=== PATIENT | female | born 1955 | race American Indian/Alaskan Native ===

== ENCOUNTER 2016-09-27 07:20 | Emergency (ER) | payer OTHER ==
[2016-09-27 07:38] VITALS: BP 131/83
--- NOTE | 2016-09-27 09:05 | XRay Report ---
RIGHT KNEE, 3 views: History: Right knee pain and injury. Normal bone mineralization. A small joint effusion is identified. There are mild degenerative changes in the retropatellar space. The medial and lateral compartments are within normal limits. No bone lesion or displaced fracture. IMPRESSION: Chondromalacia patella. Small joint effusion. No acute injury is detected.
[2016-09-27] MEDS ORDERED: FLEXERIL PO ONE (09:41)
[2016-09-27] MEDS ORDERED: MOTRIN PO ONE (09:42)
--- NOTE | 2016-09-27 16:51 | Emergency Department Report ---
Entered by KENTRELL ANDREA, acting as scribe for GALE DO PA. ED Lower Extremity HPI - General Chief Complaint: Extremity Injury, Lower Stated Complaint: RT KNEE PAIN Time Seen by Provider: 09/27/16 09:23 Source: patient Mode of arrival: Ambulatory Limitations: No Limitations - History of Present Illness Initial Comments: 60 y/o female with no significant PMHx presents to the ED c/o posterior right knee pain that began 1 day ago. Rates pain a 10/10 in severity, which she describes as sharp and aching in quality. Aggravated with weight bearing and movement, and alleviated with immobilization. Reports associated right knee swelling, but she denies any right knee injury/trauma, numbness, tingling, chest pain, SOB, back pain, and headache. Patient reports she works out regularly and her right knee swells up after her workouts. Took aspirin yesterday and applied an ice pack with an china wrap with no relief. NKDA. SMITH Complaint: other (right knee pain and swelling) Onset/Timin -: days(s) Injury: Ankle: Right (posterior) Type of Injury: unknown Place: home Severity: severe Severity scale (0 -10): 10 Improves With: nothing Worsens With: weight bearing, movement Associated Symptoms: swelling (posterior right knee), able to partially bear weight, ambulatory. denies: snap/pop sensation, numbness, tingling Treatments Prior to Arrival: cold therapy, bandage, NSAIDS - Related Data Previous Rx's Medication Instructions Recorded Last Taken Type HYDROcodone/APAP 5-325 [[place] 1 each PO Q6HR PRN #12 tablet 06/29/14 Unknown Rx 5/325] Cyclobenzaprine [Flexeril] 10 mg PO TID PRN #24 tablet 09/27/16 Unknown Rx Ibuprofen [Motrin 600 MG tab] 600 mg PO Q8H PRN #30 tablet 09/27/16 Unknown Rx Allergies Allergy/AdvReac Type Severity Reaction Status Date / Time No Known Allergies Allergy Unverified 06/29/14 05:58 ED Review of Systems ROS: Stated complaint: RT KNEE PAIN Other details as noted in HPI Comment: All other systems reviewed and negative Constitutional: denies: chills, fever Eyes: denies: eye pain, eye discharge, vision change ENT: denies: ear pain, throat pain Respiratory: denies: cough, orthopnea, shortness of breath, SOB with exertion, SOB at rest, stridor, wheezing Cardiovascular: denies: chest pain, palpitations, dyspnea on exertion, orthopnea , edema, syncope, paroxysmal nocturnal dyspnea Endocrine: no symptoms reported Gastrointestinal: denies: abdominal pain, nausea, vomiting, diarrhea Musculoskeletal: joint swelling (right knee), arthralgia (right knee pain). denies: back pain Skin: denies: rash, lesions Neurological: denies: headache, weakness, numbness, paresthesias Psychiatric: denies: anxiety, depression Hematological/Lymphatic: denies: easy bleeding, easy bruising ED Past Medical Hx - Past Medical History Previous Medical History?: No - Surgical History Past Surgical History?: Yes Hx Cholecystectomy: Yes - Family History Family history: no significant - Social History Smoking Status: Never Smoker Substance Use Type: None - Medications Home Medications: Home Medications Medication Instructions Recorded Confirmed Last Taken Type HYDROcodone/APAP 5-325 [[place] 1 each PO Q6HR PRN #12 tablet 06/29/14 Unknown Rx 5/325] Cyclobenzaprine [Flexeril] 10 mg PO TID PRN #24 tablet 09/27/16 Unknown Rx Ibuprofen [Motrin 600 MG tab] 600 mg PO Q8H PRN #30 tablet 09/27/16 Unknown Rx ED Physical Exam - General Limitations: No Limitations General appearance: alert, in no apparent distress - Head Head exam: Present: atraumatic, normocephalic - Eye Eye exam: Present: normal appearance, PERRL, EOMI Pupils: Present: normal accommodation - ENT ENT exam: Present: normal exam, mucous membranes moist, normal external ear exam - Neck Neck exam: Present: normal inspection, full ROM. Absent: tenderness, meningismus, lymphadenopathy - Respiratory Respiratory exam: Present: normal lung sounds bilaterally. Absent: respiratory distress, wheezes, rales, rhonchi, stridor, chest wall tenderness, accessory muscle use, decreased breath sounds - Cardiovascular Cardiovascular Exam: Present: regular rate, normal rhythm, normal heart sounds. Absent: systolic murmur, diastolic murmur, rubs, gallop - GI/Abdominal GI/Abdominal exam: Present: soft, normal bowel sounds. Absent: distended - Extremities Exam Extremities exam: Present: full ROM (limited and painful flexion ROM to right knee), tenderness (posterior right knee), normal capillary refill. Absent: pedal edema, joint swelling, calf tenderness - Expanded Lower Extremity Exam Right Hip exam: Present: normal inspection, full ROM, external rotation, internal rotation, pelvic stability. Absent: tenderness, swelling, abrasion, laceration , ecchymosis, deformity, crepidus, dislocation, erythema, shortening Upper Leg exam: Present: normal inspection, full ROM. Absent: tenderness, swelling, abrasion, laceration, ecchymosis, deformity, crepidus, dislocation, erythema Knee exam: Present: full ROM (limited and painful flexion ROM to right knee), tenderness (posterior aspect of right knee), swelling (posterior aspect of right knee), full knee extension. Absent: abrasion, laceration, ecchymosis, deformity, crepidus, dislocation, erythema, effusion, pain w/ pronation/ supination, posterior draw sign, pain/laxity with valgus, pain/laxity with varus Lower Leg exam: Present: normal inspection, full ROM. Absent: tenderness, swelling, abrasion, laceration, ecchymosis, deformity, crepidus, dislocation, erythema, palpable cord, Coco's sign Ankle exam: Present: normal inspection, full ROM. Absent: tenderness, swelling , abrasion, laceration, ecchymosis, deformity, crepidus, dislocation, erythema, anterior draw sign Foot/Toe exam: Present: normal inspection, full ROM Neuro vascular tendon exam: Present: no vascular compromise. Absent: pulse deficit, abnormal cap refill, motor deficit, sensory deficit, tendon deficit, extremity cold to touch, pallor, abnormal 2-point discrimination, decreased fine /light touch, foot drop, peroneal nerve deficit, significant pain with passive ROM of distal joint Gait: Positive: observed and limited by pain - Back Exam Back exam: Present: normal inspection, full ROM. Absent: tenderness, CVA tenderness (R), CVA tenderness (L), muscle spasm, paraspinal tenderness, vertebral tenderness, rash noted - Neurological Exam Neurological exam: Present: alert, oriented X3, normal gait (limited due to right knee pain) - Psychiatric Psychiatric exam: Present: normal affect, normal mood - Skin Skin exam: Present: warm, dry, intact. Absent: rash ED Course Vital Signs 09/27/16 07:36 Temperature 98.3 F Pulse Rate 86 Respiratory 16 Rate Blood Pressure 131/83 O2 Sat by Pulse 100 Oximetry ED Lower Extremity MDM - Radiology Data Radiology results: report reviewed, image reviewed RIGHT KNEE, 3 views: History: Right knee pain and injury. Normal bone mineralization. A small joint effusion is identified. There are mild degenerative changes in the retropatellar space. The medial and lateral compartments are within normal limits. No bone lesion or displaced fracture. IMPRESSION: Chondromalacia patella. Small joint effusion. No acute injury is detected. Transcribed By: TTR Dictated By: MARIA ELENA RAMOS JR, MD Electronically Authenticated By: MARIA ELENA RAMOS JR, MD Signed Date/Time: 09/27/16 0900 - Medical Decision Making 60 [id number] presents with right knee pain ED course: Patient received an X-ray of right knee. Patient received 1 dose of Flexeril and 1 dose of Motrin. Vital signs stable patient is in no acute or respiratory distress. Discussed findings with patient about diagnoses. Discussed treatment in ED with patient Discussed with patient to take prescribed Motrin and Flexeril for pain. Discussed with patient to stretch knee and apply ice/heat to right knee. Discussed with patient to follow up with PCP as referred, and to return to the ED if symptoms return or worsen. Patient states understanding and will follow instructions. Pt verbally states understanding and will comply to follow up. Critical care attestation.: If time is entered above; I have spent that time in minutes in the direct care of this critically ill patient, excluding procedure time. ED Disposition Clinical Impression: Right knee sprain Disposition: DC-01 TO HOME OR SELFCARE Is pt being admited?: No Does the pt Need Aspirin: No Condition: Stable Instructions: Knee Sprain (ED), Knee Exercises (GEN), Heat Pack Application (ED ), Knee Immobilizer (ED) Prescriptions: Cyclobenzaprine [Flexeril] 10 mg PO TID PRN #24 tablet PRN Reason: Muscle Spasm Ibuprofen [Motrin 600 MG tab] 600 mg PO Q8H PRN #30 tablet PRN Reason: Pain Referrals: PRIMARY CARE, [Primary Care Provider] - 3-[address] [facility] [Outside] - 3-5 Days [facility] [Outside] - 3-5 Days Forms: Work/School Release Form Time of Disposition: 10:08 This documentation as recorded by the lesleyibeZULLY JASMINE,accurately reflects the service I personally performed and the decisions made by ,GALE DO PA.
== END 2016-09-27 10:31 | disposition home or self-care (01) ==
LOC: ED 07:20
DX: S83.8X1A Sprain of other specified parts of right knee, initial encounter (principal); X58.XXXA Exposure to other specified factors, initial encounter; Y93.89 Activity, other specified; Y99.9 Unspecified external cause status; Y92.89 Other specified places as the place of occurrence of the external cause
CPT/HCPCS: 99283